=== PATIENT | female | born 1970 | race Two or more races ===

== ENCOUNTER 2019-08-17 00:52 | Emergency (ER) | payer OTHER ==
[~2019-08-17] VITALS: Ht 160 cm; Wt 95.3 kg
[2019-08-17 00:59] VITALS: BP 170/113
--- NOTE | 2019-08-17 01:02 | NUR ---
PT AAOX4. AMBULATORY WITH STEADY GIAT. C/O SORE THROAT AND DIARRHEA X1 DAY. +CHILLS +FEELING "I NEED TO VOMIT" PLACED ON MONITOR AND PULSE OX. VSS. JOB VICK FOR EVAL. LAKHWINDER PAIN. WILL CONTINUE TO MONITOR.
== END 2019-08-17 01:33 | disposition home or self-care (01) ==
LOC: ER 00:57
DX: J02.9 Acute pharyngitis, unspecified (principal); R19.7 Diarrhea, unspecified

== ENCOUNTER 2024-06-16 11:14 | Emergency (ER) | payer OTHER ==
[~2024-06-16] VITALS: Ht 160 cm; Wt 90.7 kg
[2024-06-16] MEDS ORDERED: BENZ-13 PO (15:42)
[2024-06-16] MEDS ORDERED: AZIT250T PO (15:42)
[2024-06-16] MEDS ORDERED: PRED50TA PO (15:42)
[2024-06-16] MEDS ORDERED: ALBU18HF2 INH (15:42)
[2024-06-16 18:18] VITALS: BP 143/89; TEMP 98.3; O2SAT 99
== END 2024-06-16 17:31 | disposition home or self-care (01) ==
LOC: ER 11:14
DX: J06.9 Acute upper respiratory infection, unspecified (principal); R07.89 Other chest pain; M79.602 Pain in left arm; R20.0 Anesthesia of skin; R20.2 Paresthesia of skin; I10 Essential (primary) hypertension; Z79.52 Long term (current) use of systemic steroids
CPT/HCPCS: 71045-TC